=== PATIENT | female | born 1975 | race American Indian/Alaskan Native ===

== ENCOUNTER 2017-05-22 10:58 | Emergency (ER) | payer OTHER ==
[~2017-05-22] VITALS: Ht 170.2 cm; Wt 97.0 kg
[~2017-05-22 10:58] MED LIST: LISI40TA PO; METF500T4 PO
[2017-05-22 11:55] LABS: HEMATOCRIT 38.8 % (34.6-47.8); HEMOGLOBIN 13.2 g/dL (11.7-16.4); WHITE BLOOD COUNT 5.4 x10^3/uL (3.4-10)
[2017-05-22 12:03] VITALS: BP 151/92
[2017-05-22 12:07] LABS: BLOOD UREA NITROGEN 9 mg/dL (7-18)
== END 2017-05-22 13:35 | disposition home or self-care (01) ==
LOC: ED 12:55
DX: N93.8 Other specified abnormal uterine and vaginal bleeding (principal); J45.909 Unspecified asthma, uncomplicated; E11.9 Type 2 diabetes mellitus without complications; I10 Essential (primary) hypertension; Z98.51 Tubal ligation status
CPT/HCPCS: 36415; 76830; 80048; 82040; 84702; 85025; 93005; 99285

== ENCOUNTER 2020-02-03 21:04 | Emergency (ER) | payer MEDICAID, OTHER ==
[~2020-02-03] VITALS: Ht 170.2 cm; Wt 92.8 kg
[~2020-02-03 21:04] MED LIST changes: +METF500T17 PO; -METF500T4 PO
[2020-02-03 21:07] VITALS: BP 199/126
--- NOTE | 2020-02-03 22:46 | NUR ---
ERP AT BEDSIDE
[2020-02-03] MEDS ORDERED: CYCLOBENZAPRINE 10 MG TABLET PO ONE (23:00)
[2020-02-03] MEDS ORDERED: HYDROmorphone 1 MG/ML, 1ML INJ IM ONE (23:00)
--- NOTE | 2020-02-03 23:00 | NUR ---
PT MEDICATED PER MAR
[2020-02-03] MEDS ORDERED: CYCLOBENZAPRINE 10 MG TABLET ONE (23:02)
[2020-02-03] MEDS ORDERED: HYDROmorphone 2 MG/ML, 1ML ONE (23:03)
== END 2020-02-04 00:33 | disposition home or self-care (01) ==
LOC: ED 22:43
DX: M54.5 Low back pain (principal); R05 Cough; I10 Essential (primary) hypertension; J45.909 Unspecified asthma, uncomplicated; E11.9 Type 2 diabetes mellitus without complications; Z98.51 Tubal ligation status
CPT/HCPCS: 96372; 99283; J1170

== ENCOUNTER 2020-03-06 00:49 | Emergency (ER) | payer MEDICAID ==
[~2020-03-06] VITALS: Ht 170.2 cm; Wt 93.0 kg
[2020-03-06] MEDS ORDERED: SODIUM CHLORIDE 0.9% 1,000ML IVBOLUS ONE (01:30)
[2020-03-06] MEDS ORDERED: SODIUM CHLORIDE FLUSH 10ML SYR IVF ONE (01:30)
[2020-03-06 01:44] LABS: ALBUMIN 3.3 g/dL (3.4-5.0); ANION GAP 9 mmol/L (5-15); CALCIUM 8.9 mg/dL (8.5-10.1); CHLORIDE 103 mmol/L (98-107); CREATININE 0.69 mg/dL (0.55-1.02)
[2020-03-06 01:47] LABS: MICROSCOPIC AUTO
[2020-03-06 02:03] LABS: BASOPHILS % (AUTO) 1 % (0-1); EOSINOPHILS % (AUTO) 10 % (1-7); LYMPHOCYTES % (AUTO) 36 % (22-44); MEAN CORPUSCULAR HEMOGLOBIN 27.2 pg (27.0-34.8); MEAN CORPUSCULAR HGB CONC 32.8 g/dL (32.4-35.8); MEAN PLATELET VOLUME 8.3 fL (7.4-10.4); MONOCYTES % (AUTO) 7 % (2-9); NEUTROPHILS % (AUTO) 47 % (42-75); PLATELET COUNT 316 x10^3/uL (130-400); RED BLOOD COUNT 4.42 x10^6/uL (3.82-5.3); RED CELL DISTRIBUTION WIDTH 14.5 % (9.6-15.2)
[2020-03-06 02:06] LABS: MD NO
[2020-03-06 03:44] VITALS: BP 147/87
== END 2020-03-06 03:53 | disposition home or self-care (01) ==
LOC: ED 01:16
DX: N93.8 Other specified abnormal uterine and vaginal bleeding (principal); R10.2 Pelvic and perineal pain; I10 Essential (primary) hypertension; E11.9 Type 2 diabetes mellitus without complications
CPT/HCPCS: 36415; 76830; 80048; 81001; 82040; 84703; 85025; 96360; 99284; J7030

== ENCOUNTER 2020-11-03 15:18 | Emergency (ER) | payer MEDICAID, OTHER ==
[~2020-11-03] VITALS: Ht 170.2 cm; Wt 95.5 kg
[~2020-11-03 15:18] MED LIST changes: -LISI40TA PO; +LISI40TA9 PO
[2020-11-03 15:28] VITALS: BP 160/99
== END 2020-11-03 17:30 | disposition home or self-care (01) ==
LOC: ED 17:15
DX: S46.811A Strain of other muscles, fascia and tendons at shoulder and upper arm level, right arm, initial encounter (principal); S39.012A Strain of muscle, fascia and tendon of lower back, initial encounter; I10 Essential (primary) hypertension; E11.9 Type 2 diabetes mellitus without complications; J45.909 Unspecified asthma, uncomplicated; V49.49XA Driver injured in collision with other motor vehicles in traffic accident, initial encounter; Y93.89 Activity, other specified; Y92.410 Unspecified street and highway as the place of occurrence of the external cause; Y99.8 Other external cause status
CPT/HCPCS: 71045; 99284

== ENCOUNTER 2020-12-03 11:47 | Emergency (ER) | payer MEDICAID, OTHER ==
[~2020-12-03] VITALS: Ht 170.2 cm; Wt 94.1 kg
[2020-12-03] MEDS ORDERED: PROMETHAZINE 25 MG/ML, 1ML ONE (12:40)
--- NOTE | 2020-12-03 13:28 | NUR ---
TASK RN NOTE: PT C/O COUGH WITH GRADUALLY WORSENING CP DUE TO COUGH, DALY, CONGESTION. RECENT EXPOSURE TO COVID + INDIVIDUAL. PT REPORTS SHE IS FULLY VACCINATED. NAD NOTED, NO WOB NOTED. SPO2 GOOD ON RA. AWAITING CXR.
[2020-12-03 14:42] VITALS: BP 152/94
--- NOTE | 2020-12-03 14:44 | NUR ---
Patient given discharge instructions and they have confirmed that they understand the instructions. Patient ambulatory with steady gait.
== END 2020-12-03 15:00 | disposition home or self-care (01) ==
LOC: ED 12:58
DX: B34.9 Viral infection, unspecified (principal); Z20.822 Contact with and (suspected) exposure to COVID-19; I10 Essential (primary) hypertension; E11.9 Type 2 diabetes mellitus without complications
CPT/HCPCS: 71046; 93005; 99285; U0003; U0005